=== PATIENT | male | born 1990 | race Two or more races ===

== ENCOUNTER 2021-12-30 20:09 | Emergency (ER) | payer BC ==
[2021-12-30] MEDS ORDERED: Ondansetron 4 MG/2 ML SDV IVPUSH ONE (20:39)
[2021-12-30] MEDS ORDERED: Ketorolac 30 MG/ML SDV IVPUSH ONE (20:39)
[2021-12-30] MEDS ORDERED: Sodium Chloride 0.9% 10 ML Syringe FLUSH PRN (20:41)
[2021-12-30 21:08] LABS: ESTIMATED GFR 102 mL/min (>60)
[2021-12-30] MEDS ORDERED: Iopamidol 755 Mg/ML 100 ML Bottle IV ONE (21:12)
[2021-12-30] MEDS ORDERED: cefTRIAXone 2 GM Vial IVPUSH ONE (22:12)
[2021-12-30] MEDS ORDERED: metroNIDAZOLE/Normal Saline 500 MG in Premix Bag 1 BAG IV ONE (22:12)
== END 2021-12-30 23:30 ==
LOC: FB.ED 20:09
DX: R10.31 Right lower quadrant pain (principal)
CPT/HCPCS: 36415; 74177; 80053; 81001; 83605; 85025; 86140; 96365; 96375; 99285; J0696; J1885; J2405; J3490; Q9967